=== PATIENT | female | born 1990 | race Caucasian/White ===

== ENCOUNTER 2016-12-21 07:46 | Outpatient (CLI) | payer BC | END 2016-12-21 09:30 | disposition home or self-care (01) | LOC: GENOP 07:46 | DX: O36.8130 Decreased fetal movements, third trimester, not applicable or unspecified (principal); Z3A.34 34 weeks gestation of pregnancy | CPT/HCPCS: G0463 ==

== ENCOUNTER 2022-04-20 05:25 | Inpatient (IN) | payer BC ==
[~2022-04-20] VITALS: Ht 157.5 cm; Wt 77.1 kg
[2022-04-20] MEDS ORDERED: PRENATABS FA T1 EACH PO (06:22)
[2022-04-20] MEDS ORDERED: IRON325 M1 PO (06:22)
[2022-04-20 07:27] LABS: HEMOGLOBIN 10.4 gm/dl (12.3-15.3); RED BLOOD COUNT 3.37 M/UL (4.00-5.10); WHITE BLOOD COUNT 6.9 K/UL (4.5-11.0)
[2022-04-20] MEDS ORDERED: IBUPROFEN800 MG PO (14:16)
[2022-04-20] MEDS ORDERED: HYDROCODON-ACE1 EAC4 PO (14:16)
[2022-04-20] MEDS ORDERED: COLACE 100MG C100 MG PO (14:16)
[2022-04-21 04:11] LABS: HEMOGLOBIN 10.1 gm/dl (12.3-15.3)
== END 2022-04-21 22:19 | disposition home or self-care (01) | DRG 807 ==
LOC: OB 05:25
PROVIDERS: Obstetrics & Gynecology; ADMIT Obstetrics & Gynecology
PROC: 10E0XZZ Delivery of Products of Conception, External Approach (ICD-10-PCS; principal; 2022-04-20)
PROC: 10907ZC Drainage of Amniotic Fluid, Therapeutic from Products of Conception, Via Natural or Artificial Opening (ICD-10-PCS; 2022-04-20)
PROC: 0HQ9XZZ Repair Perineum Skin, External Approach (ICD-10-PCS; 2022-04-20)
PROC: 3E033VJ Introduction of Other Hormone into Peripheral Vein, Percutaneous Approach (ICD-10-PCS; 2022-04-20)
PROC: 4A1H7CZ Monitoring of Products of Conception, Cardiac Rate, Via Natural or Artificial Opening (ICD-10-PCS; 2022-04-20)
PROC: 10H073Z Insertion of Monitoring Electrode into Products of Conception, Via Natural or Artificial Opening (ICD-10-PCS; 2022-04-20)
PROC: 0UH97HZ Insertion of Contraceptive Device into Uterus, Via Natural or Artificial Opening (ICD-10-PCS; 2022-04-20)
DX: O69.81X0 Labor and delivery complicated by cord around neck, without compression, not applicable or unspecified (principal); Z37.0 Single live birth; O70.0 First degree perineal laceration during delivery; Z3A.39 39 weeks gestation of pregnancy; Z82.49 Family history of ischemic heart disease and other diseases of the circulatory system; Z83.3 Family history of diabetes mellitus
CPT/HCPCS: 82800; 85014; 85018; 85025; J2405; J2590